=== PATIENT | female | born 1930 | race African-American/Black ===

== ENCOUNTER 2018-09-04 12:28 | Inpatient (IN) | payer OTHER ==
[~2018-09-04] VITALS: Ht 157.5 cm; Wt 57.0 kg
[2018-09-04 12:29] VITALS: BP 111/75
[2018-09-04 12:49] LABS: URINE BILIRUBIN NEGATIVE (Negative); URINE BLOOD 1+ (Negative); URINE CLARITY CLOUDY; URINE COLOR YELLOW; URINE GLUCOSE-RANDOM* TRACE (Negative); URINE KETONES NEGATIVE (Negative); URINE PROTEIN (DIPSTICK) 1+ (Negative)
[2018-09-04 12:50] LABS: URINE LEUKOCYTES-REFLEX 3+ (Negative); URINE NITRITE-REFLEX POSITIVE (Negative)
[2018-09-04 12:58] LABS: AMP/METHAMP Negative (Negative); BARBITURATES Negative (Negative); BENZODIAZEPINES Negative (Negative); COCAINE Negative (Negative); METHADONE Negative (Negative); OPIATES Negative (Negative); PCP Negative (Negative)
[2018-09-04 13:00] LABS: BACTERIA-REFLEX >30 Many /HPF (None Seen); CASTS None Seen /LPF (None Seen); CRYSTALS None Seen /LPF (None Seen); SQUAMOUS 0-3 Few /LPF (0-3); URINE RBC None Seen /HPF (0-2); URINE WBC-REFLEX >25 Many /HPF (0-5)
[2018-09-04 13:20] LABS: HEMATOCRIT 42.4 % (37.0-47.0); HEMOGLOBIN 14.5 gm/dL (12.0-15.0); MCH 29.7 pg (26.0-34.0); MCHC 34.3 g/dL (28.0-37.0); MCV 86.7 fL (80.0-100.0); PLATELET COUNT 269 thou/uL (150-400); RBC 4.89 mil/uL (4.20-5.00); RDW 13.6 % (10.5-14.5); WBC 9.4 thou/uL (4.0-11.0)
[2018-09-04 13:29] LABS: CALCIUM 9.8 mg/dL (8.5-10.1); CREATININE 0.9 mg/dL (0.6-1.0); POTASSIUM 3.2 mmol/L (3.5-5.1)
[2018-09-04 13:35] LABS: ALBUMIN 3.3 g/dL (3.4-5.0); TOTAL BILIRUBIN 0.7 mg/dL (<0.1-1.0); TOTAL PROTEIN 7.6 g/dL (6.4-8.2)
[2018-09-04 13:38] LABS: ABSOLUTE NEUTROPHILS 5.9 thou/uL (1.4-8.2); PLATELET ESTIMATE NORMAL
[2018-09-04] MEDS ORDERED: DEPAKOTE125 MG PO (18:08)
[2018-09-04] MEDS ORDERED: ABILIFY 5 MG TAB5 MG PO (18:08)
[2018-09-04] MEDS ORDERED: METFORMIN HCL500 MG PO (18:09)
[2018-09-04] MEDS ORDERED: ZANTAC 150MG T150 MG PO (18:09)
[2018-09-04] MEDS ORDERED: TYLENOL325 M1 PO (18:10)
[2018-09-04] MEDS ORDERED: AMLODIPINE BESY10 MG PO (18:11)
[2018-09-04] MEDS ORDERED: PROTONIX40 M1 PO (18:11)
[2018-09-04] MEDS ORDERED: JANUVIA100 MG PO (18:12)
[2018-09-04] MEDS ORDERED: COZAAR 25 MG TA25 M1 PO (18:12)
[2018-09-04] MEDS ORDERED: WELLBUTRIN XL300 MG PO (18:13)
[2018-09-04] MEDS ORDERED: CRANBERRY425 MG PO (18:15)
[2018-09-04] MEDS ORDERED: CARVEDILOL12.5 MG PO (18:15)
[2018-09-04] MEDS ORDERED: MIRALAX17 GM PO (18:17)
[2018-09-04] MEDS ORDERED: ATIVAN1 MG PO (18:18)
[2018-09-04 18:20] VITALS: BP 164/71
[2018-09-04 19:25] VITALS: BP 171/78
[2018-09-04 21:47] VITALS: BP 140/100
--- NOTE | 2018-09-04 21:53 | NUR ---
ADMIT FROM ED.87 Y,DNR, NKDA, CALM COOPERATIVE VOLUNTARY NO DPOA, FROM [facility] FOR DEMENTIA WITH AGRESSION, HITTING, YELLING, THROWING ITEMS, GRABBING ITEMS. PT HAD PREVIOUSLY LIVED WITH HER SON WENT TO THE HOSPITAL AND WAS PLACED IN LTC. PT CURRENTLY HAS UTI, RECIVED ANTIBIOTIC, IV NS, MAGNESIUM AND K IN THE ED. MED HX GERD, HTN, DJD, DM, HX SMOKING. HOSPITALIST ON UNIT AND NOTIFIED OF ADMISSION. AMBULATES SBA WITH WALKER, STEADY GAIT, INCONTINENT AT TIMES. NO TEETH, REG DIET SOFT.
--- NOTE | 2018-09-04 22:00 | NUR ---
PT AWAKENED AT 2200 TO USE RESTROOM, PT COMPLIANT WITH ADL CARE, ONCE TIME TO RETURN TO BED, PT STARTED TO WALK TOWARD ARTHUR, PT PUSHING ON DOORS, STATING SHE WANTED TO LEAVE, PT WANDERING INTO ROOMS. PT GRABBED AT STAFF, SCRATCHED AT STAFF, SMACKED STAFF ON CHEEK. PT GRABBED AT COMB, STETHESCOPE AND BP CUFF, WOULD NO RELEASE ON REDIRECTION. PT SWUNG AT NURSE WITH BP CUFF. PT VOICE CALM AND CLEAR NOT YELLING. PT REFUSED TO AMBULATE OUT OF SUPPLY DOOR WAY, ASSISTED TO W/C. PT ATTEMPTED TO SLIDE SELF ON TO FLOOR FROM W/C. PT STATED STAFF WAS [facility]. DR HU AND PRN ORDER OBTAINED IM.
--- NOTE | 2018-09-05 05:56 | NUR ---
PT BECAME CALM AND READY FOR BED APPROXIMATELY 30 MINUTES AFTER IM MEDICATION. PT HAS NOT BEEN AGITATED WITH INCONTINENCE CHECKS.
--- NOTE | 2018-09-05 08:08 | EKG ---
[place] [address] [facility] [place] [address] ELECTROCARDIOGRAM REPORT Name: ANH DUEÑAS Room #: 519B-B ADM IN M.R.#: [id number] ������������������ Admission: 09/04/18 ������������������ Attend Phys: Chava Tee DO Discharge: ������������������ Date of : 31 Report #: [id number] ����������������������������������������������������������������� [id number] THIS REPORT FOR: //name// [facility] ED Test Date: 2018-09-04 Test Time: 12:59:24 Pat Name: ANH DUEÑAS Department: Room: [facility] Gender: F Masticator: YANNI : 1930 Requested By: Julian Almanzar Order Number: [id number] MD: Lance Calvo Measurements Intervals [place] Rate: 76 P: 12 MN: 174 QRS: -12 QRSD: 83 T: 65 QT: 400 QTc: 450 Interpretive Statements Sinus rhythm Nonspecific ST segment abnormality No previous ECG available for comparison Electronically Signed On 09-05-2018 8:08:41 CDT by Lance Calvo [email or web address] ��������������������������������������������� <ELECTRONICALLY SIGNED> ���������������������������������������� By: Lance Calvo MD, [facility] ��������������������������������������������� 09/05/18 0808 [id number] Lance Calvo MD, FACC /EPI
[2018-09-05 08:18] VITALS: BP 175/78
--- NOTE | 2018-09-05 11:09 | NUR ---
ASSUMED PATIENT CARE AT 0700. PATIENT ASSISTED UP TO DR TIMES ONE. COOPERATIVE WITH A.M. MEDICATIONS, WHOLE WITH WATER. FLAT EFFECT, CALM MOOD. NO BEHAVIORS TO DATE THIS SHIFT. PHYSICAL THERAPY WALKED PATIENT, ALSO ASSISTED OTHER STAFF WITH CHANGING AND CLEANING PATIENT. LARGE, SOFT, INCONTINENT BOWEL MOVEMENT.
[2018-09-05 15:06] VITALS: BP 175/78
--- NOTE | 2018-09-05 17:00 | NUR ---
SW completed the SLUMS. Pt scored a 10/30. SW will follow-up with psychiatrist on the score.
[2018-09-05 19:33] VITALS: BP 180/59
[2018-09-05 21:02] VITALS: BP 120/70
--- NOTE | 2018-09-05 21:42 | NUR ---
PT ASLEEP IN BED UPON ARRIVAL TO SHIFT. PT AWAKENED AND COMPLIANT WITH HS MEDS, PUDDING AND INCONTINENCE CARE. PT DOES HAVE DIFFICULTY WITH LARGE PILLS WILL ASK DAY NURSE TO REQUEST DEPAKOTE SPRINKLES. PT HAS GOOD EYE CONTACT SMILING. SPEECH GARBLED AT TIMES, CONVERSATIONS INVOLVING PEOPLE NOT PRESENT, HAVING TO GET TO WORK, RESTING, CONVERSATIONS DUE NOT LINK WITH PREVIOUS TOPIC.
[2018-09-06 07:58] VITALS: BP 154/48
[2018-09-06 08:00] VITALS: BP 154/48
--- NOTE | 2018-09-06 09:52 | H ---
[facility] [place] [address] HISTORY AND PHYSICAL Name: ANH DUEÑAS Room #: 519B-B ADM IN M.R.#: [id number] Admission: 09/04/18 ������������������ Attend Phys: Chava Tee DO Discharge: ������������������ Date of : 31 Report #: [id number] THIS REPORT FOR: //name// CC: Chava Hairston DATE OF SERVICE: 09/05/2018 INPATIENT PSYCHIATRIC EVALUATION PRODUCTION ZONE LEADER: Shannan Hairston MD REASON FOR ADMISSION: Agitation, inability to redirect, aggressive behaviors at the [facility]. SOURCE OF INFORMATION: From patient, from Dr. Hairston, Emergency Room records and sign out from half-way. HISTORY OF PRESENT ILLNESS: This is an 87-year-old female with significant history of major neurocognitive disorder, who does not have a surrogate decision maker, so she was admitted under parens patriae doctrine to the [facility] Unit at [facility]. She was evaluated in the Emergency Room last night by Dr. Snyder. The half-way staff noted increase in aggressive behavior over the last 2 weeks or so. The patient had been sent out couple weeks prior to [facility], urinary tract infection was diagnosed and was not sent on to Geriatric Psychiatry. The patient admitted to some aggressive behavior, although she is unsure why she was mean to staff. She told the Emergency Room she believed it was due to being hungry. In the Emergency Room, she was calm, cooperative, and just to be at baseline mentation. REVIEW OF SYSTEMS: The patient's review of systems in the Emergency Room here at [place]; CONSTITUTIONAL: Negative for fever or chills. EYES: Negative for eye pain or visual change. HENT: Negative for rhinorrhea or sore throat. RESPIRATORY: Negative for cough or shortness of breath. CARDIOVASCULAR: Negative for chest pain or palpitations. GASTROINTESTINAL: Negative for abdominal pain or nausea, vomiting or diarrhea. GENITOURINARY: Negative for burning, urgency, frequency or hematuria. MUSCULOSKELETAL: Negative for back pain or muscle pain. SKIN: Negative for any rashes. NEUROLOGICAL: Negative for numbness, tingling or weakness. ENDOCRINE: Negative for diabetes or hypothyroidism. PSYCHIATRIC: As above. HEMATOLOGIC AND LYMPHATIC: Negative for easy bruising or bleeding. [address] [address] HISTORY AND PHYSICAL Name: ANH DUEÑAS Room #: 519B-B ADM IN M.R.#: [id number] Admission: 09/04/18 ������������������ Attend Phys: Chava Tee, Discharge: ������������������ Date of : 31 Report #: [id number] Otherwise, 10-point review of systems was negative. Her physical exam was largely normal in the ER. LABORATORY DATA AND DIAGNOSTIC STUDIES: There was a 12-lead EKG done, read by Dr. Calvo, QTc was 450, QT 400, UT 174, rate 76. She was in sinus rhythm. The patient's laboratories were negative of urinary tract infection. H and H is 14.0 and 42.4, white count 9.4, platelets 269. Chemistry: Magnesium was 1.5 in the ER, sodium 133, potassium 3.2, chloride 94, glucose 171, AST 14, ALT 11, BUN was 18, creatinine 0.9, estimated GFR 59, albumin 3.3, total protein 7.6. Urinalysis showed 1+ protein, 1+ blood, positive nitrites, positive leukocyte esterase, positive bacteria and trace glucose. Toxicology was negative for substances tested. There is a urine culture that is pending. No neuroimaging was done. Chest x-ray was done in the ER, which showed no acute cardiopulmonary process. MUSCULOSKELETAL EXAMINATION: Ambulates with walker, upright stature, slight kyphosis, I do not see this. This is a well-developed, disheveled female appearing at least stated age. Attention limited. Concentration limited. Speech is normal rate. Thought process is linear and goal oriented. Thought content focused when seeing this afternoon on 09/05/2018 her nephew being on the unit, she said his name is Bill Roque, she would not sit down to talk to me due to her vigilance in finding of her nephew. Some psychomotor agitation. No psychomotor retardation. Denied auditory, visual, or tactile hallucinations. Denied suicidal intent or plan. Denied hopelessness, helplessness. Denied homicidal intent or plan. Memory not formally tested. Insight impaired. Judgment impaired. Fund of knowledge is well below average. FORMULATION: An 87-year-old female brought from a nursing facility for psychiatric evaluation and admission. DIAGNOSIS: Major neurocognitive disorder this time, most likely Alzheimer's disease by history and current examination with behavioral disturbance. Comorbidities include urinary tract infection. Empiric therapy started with a gram of ceftriaxone. PLAN: Continue Rocephin for 2 more doses of 3 days total; MiraLax 17 grams oral daily; metformin 500 mg extended release daily in the morning, she was receiving this at the half-way; losartan 100 mg p.o. daily receiving at the half-way; famotidine 20 mg p.o. daily ____ in the half-way; amlodipine 10 mg p.o. daily with blood pressure parameters, she was receiving at the half-way; Coreg 6.25 mg twice a day with meals with blood pressure parameters she was receiving at the half-way. She received 15 mg of Geodon IM injection due to being agitated last night. Scheduled medications include Haldol 2 mg p.o. b.i.d. I have kept her on her Depakote 1000 mg ER at bedtime, blood level scheduled for this Monday at 1800 hours. Continue other house p.r.n.'s. [facility] [address] [place] [address] HISTORY AND PHYSICAL Name: ANH DUEÑAS Room #: 519B-B ADM IN M.R.#: [id number] Admission: 09/04/18 ������������������ Attend Phys: Chava Tee DO Discharge: ������������������ Date of : 31 Report #: [id number] STRENGTHS: She is insured, already has a placement. WEAKNESSES: Advancing age, having a neurocognitive disorder. ESTIMATED LENGTH OF STAY: 7-10 days. Time spent on interview, review of records, and coordination of care is 45-minute range. Again, the patient was uncooperative with interview, so things like social developmental history and such are not known to the solids at this time. ��������������������������������������������� <ELECTRONICALLY SIGNED> ���������������������������������������� By: Chava Tee DO ��������������������������������������������� 09/06/18 0952 [id number] Chava Tee DO /nt
--- NOTE | 2018-09-06 17:42 | NUR ---
AAOX1. PLEASANT AND COOPERATIVE. ATE ALL 3 MEALS IN DINING ROOM WITH GOOD APPETITE. DENIES PAIN OR DISCOMFORT. AMBULATES WITH SLOW STEADY GAIT USING ROLLER WALKER. ATTENTED GROUPS WITH FAIR PARTICIPATION.
[2018-09-06 19:29] VITALS: BP 94/31
--- NOTE | 2018-09-06 22:34 | NUR ---
PT RESTING IN BED UPON ARRIVAL TO SHIFT. PT BP 90/50 CALLED LINING CEMENTER TO CLARIFY IF OK TO PROCEED WITH HS MEDS AND MEDS GIVEN. PT COMPLIANT WITH HS SNACK. PT HAD ODOROUS BUT FORMED STOOL. PT DISCUSSED WITH NURSE THAT SHE DID NOT KNOW HOW SHE WAS GOING TO PAY THE NURSE FOR HER HELP. PT ALSO STATED SHE WAS OK WITH THE MALE HELPING HER BUT SHE WAS NOT AWARE HE WOULD BE HELPING WITH SHOWERS. SHE WANTED TO KNOW IF HE WAS WEALTHY AND IN CHARGE OR WAS IT JUST FAMILY MONEY. PT STATED SHE PREFERS FEMALES FOR CARES. MALE TECH NOTIFIED BY NURSE. PT STEADY GAIT WITH WALKER, GOOD EYE CONTACT, BLUNTED AFFECT, SPEECH CLEAR SENTENCES RELATED TO SAME TOPIC.
[2018-09-07 04:25] LABS: MAGNESIUM 1.9 mg/dL (1.8-2.4); POTASSIUM 4.8 mmol/L (3.5-5.1)
[2018-09-07 07:12] VITALS: BP 139/64
--- NOTE | 2018-09-07 17:43 | NUR ---
LABILE MOOD IN LATER PART OF SHIFT(APPROX [phone]) TEARFUL, MISIDENTIFIES OTHER PATIENTS HER FAMILY MEMBERS AND HAS MINIMAL RESPONSE TO ATTEMPTS TO REORIENT OR REASSURE. DID REPORT MID/LOW BACK PAIN RATED A 7 ON 1-10 SCALE-TYLENOL 625MG AND TOPICAL MUSCLE RUB PRN AT APPROX [phone] WITH VERBALIZED GOOD RELIEF. REFUSED AM BLOOD SUGAR BUT 1630 BS 239 AFTER CONSUMING PM SNACK OF ICE CREAM AND LIA CRACKERS. GAIT STEADY WITH USE OF ROLLER WALKER
[2018-09-07 19:35] VITALS: BP 155/52
--- NOTE | 2018-09-08 01:16 | NUR ---
Care assumed of patient at 1915: Patient resting quietly in bed at start of shift. Patient offered HS snack, she declined. Patient reported pain rated 7/10 to lower back. Offered PRN Tylenol. Patient declined. Patient assisted to the bathroom. Encouraged patient to place on pajamas/gown. Patient declined and wished to sleep in her day clothes. Patient assisted in turning and changing positions every 2 hours through the night. Patient primarily non-compliant and becomes agitated when staff attempt to assist her. Patient provided HS medications. Patient took prescribed Haldol then spit out her Depakote. Patient stated to just leave her alone so she can sleep. Patient has been resting in bed most of the shift. Patient alert and oriented x person only. Patient irritable when she is awake. Declined to respond to questions addressing SI/HI/AH/VH. No s/s of these thoughts at this time. No specific delusional or paranoia behaviors observed.
[2018-09-08 05:15] VITALS: BP 157/48
--- NOTE | 2018-09-08 05:48 | NUR ---
Patient was being assisted to the bathroom by nursing staff at 0500. Patient was able to use the bathroom, jonh care provided, brief and clothing changed. Patient had walker sitting in front of her while sitting on the toilet. Staff assisted patient stand and was holding her hand. Patient started to walk, took a couple steps and fell to the bathroom floor, sitting on her buttock with legs straight out. Staff was able to assist patient to the floor. Patient did not hit her head at the time of fall. Patient had on yellow non-skid footwear at time of fall. Patient alert and oriented to person with confusion and forgetfulness due to the diagnosis of dementia which is baseline for this patient. Skin assessment completed. No injuries observed. Full ROM to all extremities. Patient denies pain or discomfort. Patient states that her legs "just gave out". Dr. Crespo notified. No new orders obtained. Message was left with Mr. Roque, patient next of kin, son. Patient assisted to bed per her choice. Bed alarm is on. Side rails up x3. Bed is in the lowest position.
[2018-09-08 06:19] VITALS: BP 153/44
[2018-09-08 07:55] VITALS: BP 145/61
--- NOTE | 2018-09-08 09:05 | NUR ---
ASSUMED PATIENT CARE AT 0700. PATIIENT IN BED AT THAT TIME. AWAKENED PER THIS NURSE, STAND-BY ASSIST TO BATHROOM PER WOOD MACHINIST APPRENTICE WHO JUST ARRIVED ON THE UNIT AT 0745. FLAT AFFECT, CALM MOOD, NO BEHAVIORS AT THIS TIME.
[2018-09-08 12:56] VITALS: BP 153/44
--- NOTE | 2018-09-08 17:40 | NUR ---
ASSUMED CARE AT 0700 THIS MORNING. PT. ATE MEALS IN THE DINING ROOM. SHE GET A SUPPLEMENT WITH BREAKFAST AND SHE DRANK THAT. COOPERATIVE WITH TAKING HER MEDICATIONS. SHE ATTENDED GROUPS TODAY. SHE HAD A FEW MEDICATION CHANGES TODAY. HER BLOOD SUGARS HAVE BEEN OVER 200 WITH EVERY TIME THE BLOOD SUGAR WAS TAKEN. INFORMED DR. GREEN OF THIS. HE ORDERED INSULIN 5 U SQ 5 MIN BEFORE MEALS. HE ALSO ORDERED GLUCAGON, GLUCOSE AND GLUCOSE GEL FOR BLOOD SUGARS < 70. HER DIVALPROEX WAS CHANGED TO SPRINKLES SINCE HER MEDS ARE USUALLY CRUSHED. SHE HAS BEEN QUIET AND SECLUSIVE IN HER ROOM BETWEEN GROUPS. DENIES SI/HI. HAS NOT BEEN NOTED TO BE TALKING TO HERSELF TODAY. SHE CONTINUES TO BE CONFUSED THOUGH
[2018-09-08 20:07] VITALS: BP 130/55
--- NOTE | 2018-09-09 03:28 | NUR ---
NURSES NOTE - ANH IS ALERT AND ORIENTED X1, SHE IS CONFUSED UPON ASSESSMENT QUESTIONS. SHE DOES APPEAR WITH A BLANK AFFECT AT TIMES, BUT IS COOPERATIVE AND REDIRECTABLE. SHE DOES REQUIRE A 1-2 ASSIST DUE TO AN UNSTEADY GAIT. SHE DOES NOT REPORT FEELINGS OF DEPRESSION ET ANXIETY, BUT DOES APPEAR NERVOUS AT ITMES IN THE MILIEU. SHE DENIES SI HI WELL HALLUCINATIONS. SHE DID NOT REPORT AND MEDICAL CONCERNS AND DOES NOT APPEAR TO BE IN DISTRESS. NURSING WILL MAINTAIN ALL PRECAUTIONS TO ENSURE SAFETY AT ALL TIMES.
--- NOTE | 2018-09-09 06:04 | NUR ---
PT SLEPT 8.4 HOURS
[2018-09-09 09:19] VITALS: BP 147/67
--- NOTE | 2018-09-09 10:19 | NUR ---
Date of Admission: 09/04/18 Date of Activity Therapy Assessment:09/07/2018 Activity Goal:Pt to attend one Recreation Therapy group per day until discharge. Initial Goal: Pt to attend group to increase reality orientation and engagement withing the milieu. Weekly progress towards goal:Did not achieve Group participation level:Moderate-improving Behaviors observed:Refferring to pts and staff as family members-very focused on this, needs constant reminders, confused and disoriented. Plan: No change towards goal
[2018-09-09 12:50] VITALS: BP 147/67
--- NOTE | 2018-09-09 13:13 | NUR ---
ASSUMED CARE AT 0700 THIS MORNING. PT. IN THE PT. DINING ROOM. SHE ATE HER MEALS IN THE DINING AREA. HER BLOOD SUGAR WAS 146 THIS MORNING. AT LUNCH IT WAS 318. DR. GREEN NOTIFIED AND ORDERED 7 MORE UNITS OF INSULIN TO TOTAL 12 UNITS AT LUNCH TIME. THIS WAS COMPLETED ORDERED. HER MEDICATIONS ARE CRUSHED AND PUT IN APPLESAUCE. SHE IS NOW ON DEPAKOTE SPRINKLES. DENIES HAVING BM UP TO THIS TIME TODAY. WHEN ASKED SHE JUST REPLIED, "I HAVEN'T GONE MUCH". DENIES SI/HI AND NO S/S AV[facility] NOTED.
[2018-09-09 21:55] VITALS: BP 173/64
[2018-09-09 23:23] VITALS: BP 148/62
--- NOTE | 2018-09-10 00:14 | NUR ---
PT RESTING IN BED UPON ADMISSION TO UNIT. AMBULATES WITH WALKER. INCONTINENT. PT ON ANTIBIOTIC FOR UTI. BLUNTED AFFECT, GOOD EYE CONTACT, COMPLIANT WITH HS MEDS,FSBS, DECLINED HS SNACK. CALM, PLEASANT CALLING STAFF HONEY.
--- NOTE | 2018-09-10 05:42 | NUR ---
NOTED L SIDE ABD WOUND, [place] 1X1X0.2. PICTURE TAKEN, WOUND CONSULT ORDERED. YELLOW PUS NOTED ON SCAB, REMOVED WHEN CLEANSED WITH SOAP AND WATER. WILL HAVE DAY CHARGE NOTIFY DR DURING ROUNDS. SON LEFT VMAIL.
[2018-09-10 08:04] LABS: MCH 29.3 pg (26.0-34.0); MCHC 33.3 g/dL (28.0-37.0); MCV 87.8 fL (80.0-100.0); PLATELET COUNT 243 thou/uL (150-400); RBC 4.44 mil/uL (4.20-5.00); RDW 13.6 % (10.5-14.5)
[2018-09-10 08:18] LABS: ALBUMIN 2.9 g/dL (3.4-5.0); CALCIUM 9.5 mg/dL (8.5-10.1); CREATININE 1.1 mg/dL (0.6-1.0); POTASSIUM 4.5 mmol/L (3.5-5.1); TOTAL BILIRUBIN 0.2 mg/dL (<0.1-1.0); TOTAL PROTEIN 6.6 g/dL (6.4-8.2)
[2018-09-10 08:45] LABS: ABSOLUTE NEUTROPHILS 4.7 thou/uL (1.4-8.2); PLATELET ESTIMATE NORMAL
[2018-09-10 09:51] VITALS: BP 163/61
--- NOTE | 2018-09-10 12:24 | NUR ---
WOUND CARE CONSULT; NO WOUNDS IDENTIFIED. PRECISION INSTRUMENT MAKER CONFIRMED THIS. NO NEED TO FOLLOW THIS PATIENT. RECONSULT IF NEEDED. DISCUSSED WITH RN
--- NOTE | 2018-09-10 15:18 | NUR ---
PATIENT PRESENTS WITH FLAT AFFECT, CALM MOOD, NO BEHAVIORS. BLOOD GLUCOSE ELEVATED THIS DATE; 167 FOR AM AND 367 AT 1100. SLIDING SCALE LISPRO INSULIN ADMINISTERED EACH TIME. PATIENT HAS ATTENDED EACH GROUP SESSION TODAY, NON-PARTICIPATORY.
[2018-09-10 19:23] VITALS: BP 116/47
--- NOTE | 2018-09-10 22:06 | NUR ---
L side abd site washed, black dried drainage removed. Small holeremains with black pink center. Nurse poolroom/poolhall manager notified. Reviewed wound note and will have day charge f/u with
--- NOTE | 2018-09-10 22:25 | NUR ---
PT FALLING ASLEEP IN DAY ROOM, ASSISTED TO BED. PT SLOUCHED WHEN AMBULATING WITH WALKER. PT COMPLIANT WITH HS MEDS AND SNACK. REMAINS ON ANTIBIOTIC. COMPLIANT WITH FSBS.
[2018-09-11 08:47] VITALS: BP 125/53
[2018-09-11] MEDS ORDERED: DEPAKOTE SPRIN125 MG PO ×2 (11:05)
[2018-09-11] MEDS ORDERED: HALOPERIDOL 1 MG1 MG PO (11:06)
[2018-09-11] MEDS ORDERED: LASIX 40 MG TAB40 M1 PO (11:07)
[2018-09-11] MEDS ORDERED: KLOR-CON 10 ER10 MEQ PO (11:07)
[2018-09-11] MEDS ORDERED: MIRALAX17 GM PO (11:08)
[2018-09-11] MEDS ORDERED: GLUCOPHAGE XR500 MG PO (11:08)
--- NOTE | 2018-09-11 11:24 | NUR ---
Patient Name: ANH DUEÑAS Admission Date: 09/04/18 DISCHARGE PLAN: Pt will be d/c to [facility] Care Assessment: Pt was assessed by Dr. 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 Special Instructions/Notes: Pt will need a memory care setting. Pt will need continuance care with Psychiatrist. DISCHARGE TO FACILITY: Nursing Facility Facility: [facility] Fax: Address: [address] [place] [id number] Contact Name: Sherman PCP: TINA Psychiatrist: YAQUELIN Psychiatrist
[2018-09-11] MEDS ORDERED: COZAAR100 MG PO (11:29)
[2018-09-11] MEDS ORDERED: CARVEDILOL12.5 MG PO (11:29)
[2018-09-11] MEDS ORDERED: NORVASC10 MG PO (11:29)
[2018-09-11] MEDS ORDERED: BACTRIM DS TAB1 EACH PO (11:29)
[2018-09-11] MEDS ORDERED: PEPCID20 MG PO (11:29)
--- NOTE | 2018-09-11 11:39 | NUR ---
ASSUMED PATIENT CARE AT 0700. PATIENT ASSISTED UP TIMES ONE TO DRESS AND READY FOR BREAKFAST. BLOOD GLUCOSE 164, 3 UNITS OF INSULIN ADMINISTERED PRIOR TO BREAKFAST. FLAT AFFECT, SOMEWHAT LETHARGIC; REPSPONDS TO CONVERSATION WITH NEED TO REPEAT FREQUENTLY, R/T PATIENT'S ROSEBUD. PATIENT ATE 100% OF BREAKFAST, DRANK PART OF SHAKE WITH BREAKFAST; HOWEVER, NURSE GAVE DEPAKOTE SPRINKLES IN REMAINDER OF SHAKE, DRANK 100% OF SHAKE. PATIENT ASSISTED TO BR AT 11:30 TO CLEAN UP AFTER INCONTINENT BOWEL MOVEMENT. DISCHARGE PLAN FOR 1:00 P.M. TODAY.
--- NOTE | 2018-09-11 13:10 | NUR ---
THIS NURSE GAVE REPORT TO JARED NURSE AT [facility]. NURSE, JARED, REQUESTED THAT A COPY OF MEDICATION FAXED TO HIM. NURSE DID SO AT [phone]. CONFIRMATION WAS RECEIVED. PATIENT TRANSPORTED BACK TO [facility] BY ONE OF THEIR EMPLOYEES AT 1312 P.M.
--- NOTE | 2018-09-12 22:22 | D ---
[facility] [place] [address] DISCHARGE SUMMARY Name: ANH DUEÑAS Room #: 519B-B [facility] IN M.R.#: [id number] Admission: 09/04/18 ������������������ Attend Phys: Chava Tee DO Discharge: 09/11/18 ������������������ Date of : 31 Report #: [id number] THIS REPORT FOR: //name// CC: Chava Hairston DATE OF SERVICE: 09/11/2018 INPATIENT PSYCHIATRIC DISCHARGE SUMMARY: PADDED BOX SEWER AT THE TIME OF DISCHARGE: Shannan Hairston MD. DISCHARGE DIAGNOSES: Major neurocognitive disorder, likely due to Alzheimer disease with behavioral disturbance, improved. Comorbidities include confirmed E. coli UTI that was treated with Rocephin, and is now being treated by Bactrim, diabetes mellitus type 2, hypokalemia corrected, hypertension, and gastroesophageal reflux disease. Diet- ensure twice a day with regular meals activitiy level as tolerated. Pt requires memory care. LABORATORY DATA: Today 09/10/2018: CBC was within normal limits. Chemistries: Glucose at the time of discharge was a bit elevated at 321, fasting is 164, yesterday was 108 and 286. Urinalysis 1+ protein, 1+ blood, so done on 09/04/2018, it did culture positive for E. coli. Toxicology: Depakote level done on the day of discharge on was 62, on the day of admission was 82. UDS is negative. Drop in level likely due to change in formulation from ER to sprinkles but still in theraputic range. DISCHARGE MEDICATION REGIMEN: Depakote ER to Sprinkles, 500 mg in the morning, 250 in the afternoon and 250 in the evening. I actually felt this was scheduled a bit differently; however, her levels are still in the therapeutic range. Haldol 3 mg p.o. 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 daily, Lasix 40 mg p.o. daily, those were added recently by Dr. Hairston, polyethylene glycol 17 g p.o. daily for bowel motility, metformin XR 500 mg p.o. b.i.d. with meals, Bactrim 1 tab p.o. b.i.d. 6 more doses, Coreg 12.5 mg p.o. b.i.d. with meals, hold if systolic blood pressure is less than 100, amlodipine 10 mg p.o. daily again hold if systolic blood pressure is less than 100, losartan 100 mg p.o. daily, hold if systolic blood pressures is less than 100, famotidine 20 mg p.o. daily for GERD. REASON FOR ADMISSION: As follows, sent for psychiatric evaluation.[facility] [address] [place] [address] DISCHARGE SUMMARY Name: ANH DUEÑAS Room #: 519B-B [facility] IN M.R.#: [id number] Admission: 09/04/18 ������������������ Attend Phys: Chava Tee DO Discharge: 09/11/18 ������������������ Date of : 31 Report #: [id number] [facility] staff had noted increased aggressive behavior toward staff. HOSPITAL COURSE: The patient was admitted to Geriatric Psychiatry Unit and UTI was detected, several doses of Rocephin were given. I elected to go with the Depakote regimen for behvaior. Given swallowing difficulties, we changed this to sprinkle formulation. In addition, we have started her on haloperidol due to some episodic psychosis and possibly has disorganized behavior. She has responded well to this. PHYSICAL EXAMINATION: VITAL SIGNS: At day of discharge are as follows: Pulse rate 72, BP 112/53. MENTAL STATUS EXAMINATION: This is a well-developed, disheveled-appearing female appearing her stated age. Attention limited. Concentration limited. Speech limited. Thought process is linear and limited. Thought content- fair poverty, not focused on the present. Denied SI or HI. Denied helplessness. Denied hopelessness. Denied homicidal intent or plan. Memory not formally tested. Insight limited. Judgment limited. Fund of knowledge below average. PROGNOSIS: For this patient is guarded due to her neurodegenerative disorder and advanced age. ��������������������������������������������� <ELECTRONICALLY SIGNED> ���������������������������������������� By: Chava Tee, ��������������������������������������������� 09/12/182 29 2351 Chava Tee, /nt
== END 2018-09-11 13:13 | DRG 57 ==
LOC: ER 12:28 → SBH 13:54 → EROBS 13:54 → SBH 19:22
PROVIDERS: Emergency Medicine; Internal Medicine; ADMIT Psychiatry & Neurology Psychiatry
DX: G30.9 Alzheimer's disease, unspecified (principal); N39.0 Urinary tract infection, site not specified; F02.80 Dementia in other diseases classified elsewhere, unspecified severity, without behavioral disturbance, psychotic disturbance, mood disturbance, and anxiety; B96.20 Unspecified Escherichia coli [E. coli] as the cause of diseases classified elsewhere; E11.9 Type 2 diabetes mellitus without complications; E87.6 Hypokalemia; I10 Essential (primary) hypertension; K21.9 Gastro-esophageal reflux disease without esophagitis; Z16.12 Extended spectrum beta lactamase (ESBL) resistance; Z79.899 Other long term (current) drug therapy
CPT/HCPCS: 10880